=== PATIENT | male | born 1980 | race Two or more races ===

== ENCOUNTER 2016-12-10 21:46 | Inpatient (IN) | payer MEDICAID ==
[~2016-12-10] VITALS: Ht 175.3 cm; Wt 101.1 kg
[2016-12-10 22:39] LABS: Red Cell Distribution Width 13.3 % (11.6-16.0); SUSPECT VIEW TRANSMISSION
[2016-12-10 22:44] LABS: DEFINITIVE VIEW TRANSMISSION; Hematocrit 43.1 % (41.0-53.0); Mean Corpuscular Hemoglobin 30.3 pg (28.0-32.0); Mean Corpuscular Hgb Conc. 34.8 g/dL (32.0-36.0); Mean Corpuscular Volume 87.1 fL (80.0-100.0); Platelet Count (auto) 256 10^3/uL (140-450); White Blood Cell 20.9 10^3/uL (4.4-10.8)
[2016-12-10 22:51] LABS: Albumin 3.8 g/dL (3.4-5.0); Anion Gap 10 (5-15); Aspartate Aminotransferase 28 U/L (15-37); BUN/Creatinine Ratio 17.9; Blood Urea Nitrogen 19 mg/dL (7-18); Calcium 8.5 mg/dL (8.5-10.1); Carbon Dioxide 26 mmol/L (21-32); Chloride 102 mmol/L (98-107); GFR African American 102 mL/min; GFR Non-African American 84 mL/min; Glucose 113 mg/dL (74-106); Metamyelocytes % 0; Myelocytes % 0; Potassium 3.6 mmol/L (3.5-5.1); Promyelocytes % 0; Reactive Lymphocytes 0; Sodium 138 mmol/L (136-145)
[2016-12-10 22:56] LABS: Alkaline Phosphatase 90 U/L (45-117); Bilirubin, Total 0.4 mg/dL (0.2-1.0); Total Protein 7.6 g/dL (6.4-8.2)
[2016-12-10 23:04] LABS: INR 0.97 (0.9-1.15); Partial Thromboplastin Time 27.1 sec (22.64-33.71)
[2016-12-10 23:17] LABS: Platelet Estimate Adequate; RBC Morphology Normal
[2016-12-11] MEDS ORDERED: cefTRIAXone SOD 1,000 MG VL IV ONE (02:45)
[2016-12-11] MEDS ORDERED: HYDROmorphone HCL 2 MG/ML VL IV ONE (02:45)
[2016-12-11] MEDS ORDERED: ONDANSETRON HCL 4 MG/2 ML VIAL IV ONE (02:45)
[2016-12-11] MEDS ORDERED: VANCOMYCIN PER PHARMACY 0 MG IV SCH (04:30)
[2016-12-11] MEDS ORDERED: ONDANSETRON HCL 4 MG/2 ML VIAL IV PRN (04:30)
[2016-12-11] MEDS ORDERED: SODIUM CHLORIDE 0.9% 1,000 ML IV ONE (04:30)
[2016-12-11] MEDS ORDERED: ACETAMINOPHEN 325 MG TAB PO PRN (04:45)
[2016-12-11] MEDS ORDERED: VANCOMYCIN 1GM/250ML D5W 250 ML IV ONE (05:00)
[2016-12-11] MEDS: ENOXAPARIN SOD 100 MG/1 ML SYRINGE SC SCH ×2 (05:16→17:11)
[2016-12-11] MEDS: PIPERACILLIN-TAZOB 3.375GM 100 ML IV SCH ×4 (06:45→23:55)
[2016-12-11] MEDS: HYDROmorphone HCL 2 MG/ML VL IV PRN ×5 (07:28→21:15)
[2016-12-11 09:00] VITALS: BP 121/67
[2016-12-11] MEDS: PANTOPRAZOLE SODIUM 40 MG/10 ML VIAL IV SCH (11:17)
[2016-12-11 13:00] VITALS: BP 127/66
[2016-12-11] MEDS: VANCOMYCIN 1GM/250ML D5W 250 ML IV SCH ×2 (14:58→21:10)
[2016-12-11 17:00] VITALS: BP 122/70
[2016-12-11] MEDS ORDERED: WARFARIN SODIUM 10 MG TAB PO ONE (18:30)
[2016-12-11 20:00] VITALS: BP 126/75
[2016-12-11 22:00] VITALS: BP_SYST 126; BP_DIAS 75; BP_DIAS 78
[2016-12-12] MEDS: HYDROmorphone HCL 2 MG/ML VL IV PRN ×5 (04:12→21:48)
[2016-12-12] MEDS: ENOXAPARIN SOD 100 MG/1 ML SYRINGE SC SCH ×2 (04:17→17:19)
[2016-12-12] MEDS: PIPERACILLIN-TAZOB 3.375GM 100 ML IV SCH ×4 (05:16→23:53)
[2016-12-12 05:30] VITALS: BP 130/81
[2016-12-12 05:39] LABS: Basophils # (auto) 0 uL; Basophils % (auto) 0.2 % (0.0-2.0); Eosinophils # (auto) 0.1 uL; Eosinophils % (auto) 0.6 % (0.0-7.0); Hematocrit 41.1 % (41.0-53.0); Hemoglobin 13.8 g/dL (13.5-17.5); Lymphocytes # (auto) 1.8 uL; Lymphocytes % (auto) 14.8 % (10.0-50.0); Mean Corpuscular Hemoglobin 29.7 pg (28.0-32.0); Mean Corpuscular Hgb Conc. 33.6 g/dL (32.0-36.0); Mean Corpuscular Volume 88.5 fL (80.0-100.0); Mean Platelet Volume 10.5 fL (7.4-10.4); Monocytes # (auto) 1.2 uL; Monocytes % (auto) 10.3 % (0.0-12.0); Neutrophils # (auto) 8.9 uL; Neutrophils % (auto) 74.1 % (37.0-80.0); Platelet Count (auto) 214 10^3/uL (140-450); Red Cell Distribution Width 13.1 % (11.6-16.0)
[2016-12-12 05:58] LABS: INR 0.98 (0.9-1.15); Partial Thromboplastin Time 32.9 sec (22.64-33.71); Prothrombin Time 10.1 sec (9.37-12.3)
[2016-12-12 06:03] LABS: Potassium 3.9 mmol/L (3.5-5.1)
[2016-12-12 06:09] LABS: Albumin 3.4 g/dL (3.4-5.0); BUN/Creatinine Ratio 11.5; Calcium 8.6 mg/dL (8.5-10.1)
[2016-12-12 06:19] LABS: Bilirubin, Total 0.7 mg/dL (0.2-1.0); Total Protein 7.1 g/dL (6.4-8.2)
[2016-12-12] MEDS: VANCOMYCIN 1GM/250ML D5W 250 ML IV SCH ×2 (06:38→13:40)
[2016-12-12 08:22] VITALS: BP 127/70
[2016-12-12] MEDS: PANTOPRAZOLE SODIUM 40 MG/10 ML VIAL IV SCH (10:05)
[2016-12-12] MEDS: HYDROcodone-ACET 10/325MG TAB PO PRN ×3 (11:53→23:53)
[2016-12-12 13:00] VITALS: BP 117/74
[2016-12-12] MEDS ORDERED: WARFARIN SODIUM 10 MG TAB PO ONE (17:00)
[2016-12-12 17:27] VITALS: BP 124/82
[2016-12-12 21:30] VITALS: BP 138/74
[2016-12-12] MEDS: APIXABAN 5 MG TAB PO SCH (22:09)
[2016-12-12] MEDS: LINEZOLID 600MG/300ML 300 ML IV SCH (22:09)
[2016-12-13] MEDS: HYDROmorphone HCL 2 MG/ML VL IV PRN ×4 (03:41→20:15)
[2016-12-13 05:21] VITALS: BP 116/65
[2016-12-13] MEDS ORDERED: PIPERACILLIN-TAZOB 3.375GM 100 ML IV ONE (05:51)
[2016-12-13] MEDS: HYDROcodone-ACET 10/325MG TAB PO PRN ×3 (05:54→21:55)
[2016-12-13] MEDS: PIPERACILLIN-TAZOB 3.375GM 100 ML IV SCH ×3 (05:59→18:14)
[2016-12-13 06:27] LABS: Basophils # (auto) 0 uL; Basophils % (auto) 0.3 % (0.0-2.0); Eosinophils # (auto) 0.1 uL; Eosinophils % (auto) 1.1 % (0.0-7.0); Hematocrit 41.8 % (41.0-53.0); Hemoglobin 14.3 g/dL (13.5-17.5); Lymphocytes # (auto) 1.7 uL; Lymphocytes % (auto) 15.9 % (10.0-50.0); Mean Corpuscular Hgb Conc. 34.3 g/dL (32.0-36.0); Mean Corpuscular Volume 87.5 fL (80.0-100.0); Mean Platelet Volume 9.8 fL (7.4-10.4); Monocytes % (auto) 9.2 % (0.0-12.0); Neutrophils # (auto) 7.7 uL; Neutrophils % (auto) 73.5 % (37.0-80.0); Platelet Count (auto) 232 10^3/uL (140-450); Red Cell Distribution Width 13.3 % (11.6-16.0); White Blood Cell 10.5 10^3/uL (4.4-10.8)
[2016-12-13 06:44] LABS: Calcium 8.6 mg/dL (8.5-10.1)
[2016-12-13 06:47] LABS: BUN/Creatinine Ratio 7.6
[2016-12-13 06:55] LABS: INR 1.12 (0.9-1.15); Prothrombin Time 11.5 sec (9.37-12.3)
[2016-12-13 10:04] VITALS: BP 117/80
[2016-12-13] MEDS: LINEZOLID 600MG/300ML 300 ML IV SCH ×2 (10:20→21:54)
[2016-12-13] MEDS: APIXABAN 5 MG TAB PO SCH ×2 (10:20→21:54)
[2016-12-13 12:32] LABS: Urine RBC 1 /hpf (0 - 3)
[2016-12-13 12:38] LABS: Urine Bilirubin Negative (Negative); Urine Blood Negative /uL (Negative); Urine Color Yellow (Yellow); Urine Glucose Normal (Normal); Urine Ketone Negative (Negative); Urine Nitrite Negative (Negative); Urine Urobilinogen Normal (Negative)
[2016-12-13 15:11] VITALS: BP 120/77
[2016-12-13 16:28] VITALS: BP_SYST 81
[2016-12-13 22:00] VITALS: BP 135/57
[2016-12-14] VITALS (7 sets, daily range): BP systolic 104–122; BP diastolic 67–75
[2016-12-14] MEDS: PIPERACILLIN-TAZOB 3.375GM 100 ML IV SCH ×4 (00:04→18:17)
[2016-12-14] MEDS: HYDROmorphone HCL 2 MG/ML VL IV PRN ×5 (00:13→21:50)
[2016-12-14] MEDS: LINEZOLID 600MG/300ML 300 ML IV SCH ×2 (09:15→21:49)
[2016-12-14] MEDS: HYDROcodone-ACET 10/325MG TAB PO PRN ×3 (09:15→20:07)
[2016-12-14] MEDS: APIXABAN 5 MG TAB PO SCH ×2 (09:15→21:49)
[2016-12-15] MEDS: HYDROcodone-ACET 10/325MG TAB PO PRN ×3 (00:06→13:02)
[2016-12-15] MEDS: PIPERACILLIN-TAZOB 3.375GM 100 ML IV SCH ×3 (00:07→13:02)
[2016-12-15] MEDS: HYDROmorphone HCL 2 MG/ML VL IV PRN ×3 (02:20→10:03)
[2016-12-15 05:14] VITALS: BP 129/72
[2016-12-15 08:00] VITALS: BP 130/71
[2016-12-15 09:00] VITALS: BP 130/71
[2016-12-15] MEDS: LINEZOLID 600MG/300ML 300 ML IV SCH (10:03)
[2016-12-15] MEDS: APIXABAN 5 MG TAB PO SCH (10:04)
[2016-12-15 13:00] VITALS: BP 132/70
[2016-12-15 15:25] VITALS: BP 140/93
== END 2016-12-15 15:51 | disposition home or self-care (01) | DRG 197 ==
LOC: ER 21:49 → OVERFLOW 21:50 → WEST WING 12-11 06:10
PROVIDERS: ADMIT Family Medicine; ATTEND Internal Medicine
DX: I82.411 Acute embolism and thrombosis of right femoral vein (principal); I82.431 Acute embolism and thrombosis of right popliteal vein; L03.115 Cellulitis of right lower limb; E66.01 Morbid (severe) obesity due to excess calories; F17.210 Nicotine dependence, cigarettes, uncomplicated; D72.823 Leukemoid reaction; Z68.32 Body mass index [BMI] 32.0-32.9, adult
CPT/HCPCS: 36415; 80048; 80053; 80074; 80202; 81001; 84484; 85007; 85025; 85027; 85379; 85610; 85652; 85730; 87081; 93005; 93971; 96374; 96375; C9113; G0434; J0696; J2405; J2543